=== PATIENT | female | born 1965 | race Native Hawaiian/Other Pacific Islander ===

== ENCOUNTER 2022-04-30 09:13 | Outpatient (CLI) | payer OTHER | END 2022-04-30 19:51 | disposition home or self-care (01) | LOC: RAD 09:13 | PROVIDERS: ATTEND Internal Medicine | DX: Z02.71 Encounter for disability determination (principal); M54.59 Other low back pain; M79.605 Pain in left leg; R26.2 Difficulty in walking, not elsewhere classified; I10 Essential (primary) hypertension; F41.8 Other specified anxiety disorders; R20.0 Anesthesia of skin ==